=== PATIENT | female | born 1980 | race Two or more races ===

== ENCOUNTER 2017-09-10 14:47 | Day surgery (SDC) | payer OTHER ==
[2017-09-10] MEDS ORDERED: CEFAZOLIN 2 GM/50 ML (PMX) 50 ML IVPB (16:30)
[2017-09-10] MEDS ORDERED: SOD CHLORIDE 0.9% 1,000 ML IV (16:30)
[2017-09-10] MEDS ORDERED: BUPIVACAINE 0.5% (SDV) 30 ML INJ ×2 (16:37→16:51)
[2017-09-10] MEDS ORDERED: LIDOCAINE 2% (MDV) 20 ML INJ (16:37)
[2017-09-10] MEDS ORDERED: CEFAZOLIN 1 GM INJ (16:40)
[2017-09-10] MEDS: BUPIVACAINE 0.5% (MPF) 30 ML INJ EPI (17:02)
[2017-09-10] MEDS: LIDOCAINE 2% (MDV) 20 ML INJ INJ (17:03)
[2017-09-10] MEDS ORDERED: KETOROLAC 30 MG INJ (17:08)
[2017-09-10] MEDS: HYDROCODONE/APAP (5/325) TAB PO (18:01)
== END 2017-09-10 18:05 | disposition home or self-care (01) ==
LOC: SDS 14:47
DX: D17.22 Benign lipomatous neoplasm of skin and subcutaneous tissue of left arm (principal)
CPT/HCPCS: 14020; 84703; 88307